=== PATIENT | female | born 1990 | race Two or more races ===

== ENCOUNTER 2017-11-22 08:52 | Emergency (ER) | payer OTHER ==
[2017-11-22 09:23] LABS: PLATELET COUNT 199 10^3/uL (150-400)
--- NOTE | 2017-11-22 09:27 | EDPHY ---
H & P Stated Complaint: abd pain - Personal History LMP (Females 10-55): 8-14 Days Ago Current Tetanus/Diphtheria Vaccine: Unsure Current Tetanus Diphtheria and Acellular Pertussis (TDAP): Unsure - Medical/Surgical History Hx Asthma: No Hx Chronic Respiratory Disease: No Hx Diabetes: No Hx Cardiac Disease: No Hx Renal Disease: No Hx Cirrhosis: No Hx Alcoholism: No Hx HIV/AIDS: No Hx Splenectomy or Spleen Trauma: No Other PMH: ovarian cyst surgery - Social History Smoking Status: Never smoked Time Seen by Provider: 11/22/17 09:03 HPI/ROS: CHIEF COMPLAINT: Recurrent abdominal pain x2 months HISTORY OF PRESENT ILLNESS: 27-year-old female with no history of diagnosed chronic abdominal pathology, no history of abdominal surgeries, moved to [place] from [facility] 3 weeks ago for school, complaining of 2 months of recurrent abdominal pain. She describes it is primarily postprandial. She describes it as in the right upper quadrant, epigastrium and left lower quadrant. She will experience intermittent episodes of diarrhea with no melena or hematochezia. No urinary abnormality. No back or flank pain. She has not had medical evaluation, no GI evaluation. No history of chronic NSAID use. PRIMARY CARE PROVIDER:None established REVIEW OF SYSTEMS: A ten point review of systems was performed and is negative with the exception of the items mentioned in the HPI PAST MEDICAL & SURGICAL HISTORY: No pertinent medical or surgical history SOCIAL HISTORY:Nonsmoker. Student. PHYSICAL EXAM (Prior to examination, patient consented to physical exam, hands were washed and my usual and customary physical exam procedures followed) 1) GENERAL: Well-developed, well-nourished, alert and oriented. Appears to be in no acute distress. 2) HEAD: Normocephalic, atraumatic 3) HEENT: Pupils equal, round, reactive to light bilaterally. Sclera anicteric. Nasopharynx, oropharynx, clear, no lesions. Moist mucous membranes 4) NECK: Full range of motion, no meningeal signs. 5) LUNGS: Clear auscultation bilaterally, no wheezes, no rhonchi, no retractions. 6) HEART: Regular rate and rhythm, no murmur, no heave, no gallop. 7) ABDOMEN: No guarding, no rebound, no focal tenderness, tender to palpation left lower quadrant, tender to palpation epigastrium and right upper quadrant. negative McBurney's, negative peritoneal sign, 8) MUSCULOSKELETAL: Moving all extremities, no focal areas of tenderness, no obvious trauma. No peripheral edema or discoloration. 9) BACK: No CVA tenderness, no midline vertebral tenderness, no fluctuance, no step-off, no obvious trauma, no visual or palpable abnormality. 10) SKIN: No rash, no petechiae. 11) Psychiatric: Patient is oriented X 3, there is no agitation. DIFFERENTIAL DIAGNOSIS: My differential diagnosis includes, but is not limited to, acute appendicitis, acute cholecystitis, bowel obstruction, acute pancreatitis, ovarian torsion, ectopic , gastritis and urinary tract infection. The patient understands that this diagnosis is provisional and can never be 100% accurate. This is a partial list of diagnoses considered. These considerations are based on history, physical exam, past history and reassessment. (Wallace Hauser) Constitutional: Initial Vital Signs Temperature (C) 36.7 C 11/22/17 08:58 Heart Rate 96 11/22/17 08:58 Respiratory Rate 16 11/22/17 08:58 Blood Pressure 105/79 11/22/17 08:58 O2 Sat (%) 97 11/22/17 08:58 O2 Delivery Mode Room Air Allergies/Adverse Reactions: No Known Allergies Allergy (Unverified 11/22/17 08:58) Home Medications: Medication Instructions Recorded Pantoprazole Sodium [Protonix 40mg 40 mg PO DAILY #30 tab 11/22/17 (RX)] Medical Decision Making - Diagnostics Imaging Results: Images reviewed myself (Wallace Hauser) ED Course/Re-evaluation: 9:25 a.m.: The patient describes recurrent abdominal pain with no medical evaluation. From the emergency department today will obtain ultrasound of the gallbladder, ovaries as she is complaining of left lower quadrant as well. Doubt diverticulitis. Care of patient under supervision of secondary supervising physician Dr Raheem Berger. 11:01 a.m. re-evaluation, she is sitting upright in the bed, appears comfortable. Discussed her imaging and diagnostic results with her. She has been explained limitations of ultrasound. The specific etiology of her symptoms is not completely clear at this time . I do not think that hospitalization is indicated. I do not think that emergent GI consultation is indicated. However I do think the patient would benefit from outpatient GI follow-up as she may necessitate further diagnostic studies. She is also noted to have a left ovarian cyst with no evidence of torsion. She is not . I recommend follow up with field appraiser for this in a provided this referral information. (Wallace Hauser) I did not see this patient while she was in the emergency department. However her care was discussed with the PA while the patient was in the department. I agree with treatment plan and management (Raheem Berger) - Data Points Laboratory Results: Laboratory Results 11/22/17 09:15 11/22/17 09:15 Departure - Departure Disposition: Home, Routine, Self-Care Clinical Impression: Recurrent abdominal pain, Left ovarian cyst Condition: Good Instructions: Ovarian Cyst (ED), Acute Abdominal Pain (ED) Additional Instructions: Seek immediate medical attention if you develop new or worsening symptoms, if you develop fevers, chills, inability to tolerate oral intake or any other symptoms that concerns you. I recommend he keep a food journal to see if there are certain foods that cause you discomfort and share this with your gift shop clerk. Referrals: Jessica Johnson MD [Medical Doctor] - 5-7 days, call for appt. (Dr. Johnson is a gift shop clerk) Carmella Zavala MD [Medical Doctor] - 2-3 days, call for appt. (Dr. Carmella Zavala is an OBGYN) Prescriptions: Pantoprazole Sodium [Protonix 40mg (RX)] 40 mg PO DAILY #30 tab
[2017-11-22 11:17] VITALS: BP 108/62
== END 2017-11-22 11:16 | disposition home or self-care (01) ==
DX: N83.202 Unspecified ovarian cyst, left side (principal)